=== PATIENT | male | born 1965 | race Hispanic/Latino ===

== ENCOUNTER 2021-06-09 18:37 | Emergency (ER) | payer MEDICARE ==
[2021-06-10] MEDS ORDERED: HYDROcodone/ACETAMINOPHEN 7.5-325MG TAB PO ONE (03:37)
--- NOTE | 2021-06-10 03:39 | Emergency Department Report ---
ED Back Pain/Injury HPI - General Chief Complaint: Back Pain/Injury Stated Complaint: BACK PAINS Source: patient Limitations: No Limitations - History of Present Illness Initial Comments: 55-year-old male with a history of congestive heart failure COPD heart attack hypertension bipolar staph infection and ADD. Patient reports in the past he had a staph infection in his back where he has hardware. Patient complains of nausea but no vomiting. Patient has not been Covid vaccinated. Patient denies any recent injury to his back. Patient states he has been relocated from [place]. Last saw his primary care doctor was in November 2020. MD Complaint: back pain -: This afternoon Similar Symptoms Previously: Yes Radiation: none Severity: severe Quality: burning Consistency: constant Improves With: none Worsens With: none Associated Symptoms: nausea/vomiting (No vomiting). denies: difficulty urinating - Related Data Previous Rx's Medication Instructions Recorded Last Taken Type Ibuprofen [Motrin 800 MG tab] 800 mg PO Q8HR PRN #30 tablet 06/10/21 Unknown Rx Allergies Allergy/AdvReac Type Severity Reaction Status Date / Time No Known Allergies Allergy Unverified 06/09/21 21:27 ED Review of Systems ROS: Stated complaint: BACK PAINS Other details as noted in HPI Comment: All other systems reviewed and negative ED Past Medical Hx - Past Medical History Previous Medical History?: Yes Hx Hypertension: Yes Hx Heart Attack/AMI: Yes Hx Congestive Heart Failure: Yes Hx Renal Disease: Yes (Kidney Failure) Hx COPD: Yes Additional medical history: Multiple Staph infections, High Cholesterol, "Blood Clots in his heart", Heavy Crack user but has been clean for 10 years, States he has an 80% blockage in his heart being managed by medication but not taking the medication, reports he has OD'd on ADD medication in the past - Surgical History Past Surgical History?: Yes Additional Surgical History: Back Surgeries x 3 - Medications Home Medications: Home Medications Medication Instructions Recorded Confirmed Last Taken Type Ibuprofen [Motrin 800 MG tab] 800 mg PO Q8HR PRN #30 tablet 06/10/21 Unknown Rx ED Physical Exam - General Limitations: No Limitations General appearance: alert, in no apparent distress - Head Head exam: Present: atraumatic, normocephalic - Eye Eye exam: Present: normal appearance - ENT ENT exam: Present: mucous membranes moist - Neck Neck exam: Present: normal inspection - Respiratory Respiratory exam: Present: normal lung sounds bilaterally. Absent: respiratory distress - Cardiovascular Cardiovascular Exam: Present: regular rate, normal rhythm. Absent: systolic murmur, diastolic murmur, rubs, gallop - GI/Abdominal GI/Abdominal exam: Present: soft, normal bowel sounds - Rectal Rectal exam: Present: deferred - Extremities Exam Extremities exam: Present: normal inspection - Back Exam Back exam: Present: full ROM, tenderness, paraspinal tenderness - Neurological Exam Neurological exam: Present: alert, oriented X3, normal gait - Psychiatric Psychiatric exam: Present: normal affect, normal mood - Skin Skin exam: Present: warm, dry, intact, normal color. Absent: rash ED Course Vital Signs 06/09/21 06/09/21 20:54 21:58 Temperature 98.1 F Pulse Rate 98 H 84 Respiratory 18 Rate Blood Pressure 180/130 172/116 O2 Sat by Pulse 94 95 Oximetry ED Medical Decision Making - Radiology Data Radiology results: report reviewed [facility] [address] [place] [address] XRay Report Signed Patient: SHELBY MATUTE MR#: [id number] : 1965 Acct:[id number] Age/Sex: 55 / M ADM Date: 06/09/21 Loc: ED Attending Dr: Ordering Physician: DRAGAN LEMUS Date of Service: 06/10/21 Procedure(s): XR spine lumbosacral 2-3V Accession Number(s): [id number] cc: DRAGAN LEMUS Fluoro Time In Minutes: LUMBAR SPINE 2 VIEWS INDICATION / CLINICAL INFORMATION: lower back pain h/o hardware. PT STATES SPINAL SX 2007 PAIN STIMULATOR 2008 COMPARISON: None available. FINDINGS: VERTEBRAE: No acute fracture. No significant malalignment. Posterior fusion and decompression at L4-5. DISC SPACES / FACET JOINTS:Interbody spacer at L5-S1. Other disc spaces are preserved. PARASPINAL SOFT TISSUES:No significant abnormality. ADDITIONAL FINDINGS: Spinal bone stimulating leads at L4. Signer Name: Joshua Hastings MD Signed: 06/10/2021 4:13 AM Workstation Name: [id number] Transcribed By: DT Dictated By: Jose Hastings MD Electronically Authenticated By: Jose Hastings MD Signed Date/Time: 06/10/21 0413 DD/ - Medical Decision Making 55-year-old male with a history of congestive heart failure COPD heart attack hypertension bipolar staph infection and ADD. Patient reports in the past he had a staph infection in his back where he has hardware. Patient complains of nausea but no vomiting. Patient has not been Covid vaccinated. Patient denies any recent injury to his back. Patient states he has been relocated from [place]. Last saw his primary care doctor was in November 2020. X-ray shows no acute abnormality does show that he has a spinal stimulator. Recommend to follow-up with a primary care provider this month ibuprofen and follow-up with pain orthopedic provider Critical care attestation.: If time is entered above; I have spent that time in minutes in the direct care of this critically ill patient, excluding procedure time. ED Disposition Clinical Impression: Chronic back pain Disposition: DC-01 TO HOME OR SELFCARE Is pt being admited?: No Does the pt Need Aspirin: No Condition: Stable Instructions: Chronic Back Pain, [id number] Additional Instructions: X-ray of your back shows no acute abnormalities. Please take pain medication and follow-up with your primary care provider. Prescriptions: Ibuprofen [Motrin 800 MG tab] 800 mg PO Q8HR PRN #30 tablet PRN Reason: Pain , Severe (7-10) Referrals: [facility] [Primary Care Provider] - 3-5 Days [facility] [Provider Group] - 3-5 Days [facility] [Provider Group] - 3-5 Days Forms: Work/School Release Form(ED)
--- NOTE | 2021-06-10 04:17 | XRay Report ---
LUMBAR SPINE 2 VIEWS INDICATION / CLINICAL INFORMATION: lower back pain h/o hardware. PT STATES SPINAL SX 2007 PAIN STIMUL ATOR 2009 COMPARISON: None available. FINDINGS: VERTEBRAE: No acute fracture. No significant malalignment. Posterior fusion and decompression at L4-5 . DISC SPACES / FACET JOINTS:Interbody spacer at L5-S1. Other disc spaces are preserved. PARASPINAL SOFT TISSUES:No significant abnormality. ADDITIONAL FINDINGS: Spinal bone stimulating leads at L4. Signer Name: Joshua Hastings MD Signed: 06/10/2021 4:13 AM Workstation Name: [id number]
[2021-06-10 05:50] VITALS: BP 158/103
== END 2021-06-10 05:44 | disposition home or self-care (01) ==
LOC: ED 18:37
DX: G89.29 Other chronic pain (principal); M54.9 Dorsalgia, unspecified; R11.0 Nausea; I11.0 Hypertensive heart disease with heart failure; I50.9 Heart failure, unspecified; I25.2 Old myocardial infarction; J44.9 Chronic obstructive pulmonary disease, unspecified; E78.5 Hyperlipidemia, unspecified
CPT/HCPCS: 72100; 99283

== ENCOUNTER 2021-08-02 22:40 | Observation (INO) | payer MEDICARE ==
--- NOTE | 2021-08-02 23:16 | Emergency Department Report ---
ED Altered Mental Status HPI - General Stated Complaint: AMS Time Seen by Provider: 08/02/21 23:11 - History of Present Illness Initial Comments: Patient was brought in by ambulance due to altered mental status. History is obtained from him and EMS. Patient states that he has felt off the last couple of days. He states that it was due to drugs. He admits to doing crack. He then later states that he did meth. He initially had denied drug use to EMS. Patient states that he just does not feel right. He is complained of upper back pain. He then complained of lower back pain and upper back pain. He admitted to having diarrhea for couple of days. He is unaware of any Covid symptoms. When asked that he had any symptoms that would be considered for pneumonia like cough and fever, he stated yes. He denies dysuria or frequency. He had no trauma. EMS states that the daughter called them because of altered mental status. She reported that he had been altered for the last couple of days. He had initially denied drug use to them. Later, in the ambulance, he admitted to crack use. He had not complained of any other symptoms to them. - Related Data Previous Rx's Medication Instructions Recorded Last Taken Type Ibuprofen [Motrin 800 MG tab] 800 mg PO Q8HR PRN #30 tablet 06/10/21 Unknown Rx Allergies Allergy/AdvReac Type Severity Reaction Status Date / Time No Known Allergies Allergy Verified 08/03/21 01:52 ED Review of Systems ROS: Stated complaint: AMS Other details as noted in HPI Comment: Unobtainable due to pts medical conditions (Patient is altered and does not provide consistent answers to the same question. Therefore review of systems is somewhat suspect.) ED Past Medical Hx - Past Medical History Hx Hypertension: Yes Hx Heart Attack/AMI: Yes Hx Congestive Heart Failure: Yes Hx Renal Disease: Yes (Kidney Failure) Hx COPD: Yes Additional medical history: Multiple Staph infections, High Cholesterol, "Blood Clots in his heart", Heavy Crack user but has been clean for 10 years, States he has an 80% blockage in his heart being managed by medication but not taking the medication, reports he has OD'd on ADD medication in the past - Surgical History Additional Surgical History: Back Surgeries x 3 - Family History Family history: other ( Denied by the patient) - Medications Home Medications: Home Medications Medication Instructions Recorded Confirmed Last Taken Type Ibuprofen [Motrin 800 MG tab] 800 mg PO Q8HR PRN #30 tablet 06/10/21 Unknown Rx ED Physical Exam - General Limitations: Altered Mental Status ( confusion with very slowed response time), Other ( pulse ox per EMS was noted and normal.) General appearance: alert, in no apparent distress, obese - Head Head exam: Present: atraumatic, normocephalic, normal inspection - Eye Eye exam: Present: normal appearance, EOMI. Absent: scleral icterus - ENT ENT exam: Present: mucous membranes dry, normal external ear exam - Neck Neck exam: Present: normal inspection. Absent: meningismus - Respiratory Respiratory exam: Present: normal lung sounds bilaterally. Absent: respiratory distress - Cardiovascular Cardiovascular Exam: Present: normal rhythm, tachycardia - GI/Abdominal GI/Abdominal exam: Present: soft. Absent: distended, tenderness - Extremities Exam Extremities exam: Present: normal capillary refill. Absent: pedal edema - Back Exam Back exam: Present: tenderness ( Diffuse paraspinous lumbar tenderness without step-off). Absent: CVA tenderness (R), CVA tenderness (L) - Neurological Exam Neurological exam: Present: alert, altered ( confused), CN II-XII intact, reflexes normal. Absent: motor sensory deficit - Psychiatric Psychiatric exam: Present: flat affect, other (slow to respond) - Skin Skin exam: Present: warm, dry ED Course Vital Signs 08/02/21 08/02/21 08/02/21 23:20 23:30 23:32 Temperature 98 F Pulse Rate 87 90 Respiratory 20 Rate Blood Pressure 165/98 Blood Pressure 165/98 [Left] O2 Sat by Pulse 95 95 Oximetry 08/02/21 08/03/21 08/03/21 23:46 00:00 00:16 Temperature Pulse Rate 97 H 84 88 Respiratory 15 20 17 Rate Blood Pressure 165/98 180/98 Blood Pressure [Left] O2 Sat by Pulse 96 98 96 Oximetry 08/03/21 08/03/21 08/03/21 00:30 01:00 02:00 Temperature Pulse Rate 96 H Respiratory 18 Rate Blood Pressure 180/98 156/97 Blood Pressure [Left] O2 Sat by Pulse 96 94 96 Oximetry 08/03/21 08/03/21 03:00 04:00 Temperature Pulse Rate 72 Respiratory 15 Rate Blood Pressure 156/97 156/97 Blood Pressure [Left] O2 Sat by Pulse 95 95 Oximetry - Reevaluation(s) Reevaluation #1: 08/02/21 23:16 EMS was met. IV and labs were ordered. CT was also ordered based on his confusion and lack of cogent answers. Reevaluation #2: 08/03/21 00:08 EKG was reviewed. Patient is still altered and confused. He told the nursing staff that he did not use drugs which contradicts previous history. Reevaluation #3: 08/03/21 01:52 Patient has refused his oral potassium. He believes that we are trying to poison him. He admits to a history of bipolar disease, which apparently was not previously known or diagnosed. Based on his paranoia, haloperidol has been ordered. IV potassium has been ordered. We will have psychiatric services see the patient in the morning. Reevaluation #4: 08/03/21 04:32 Geodon was administered as the patient was still agitated and pacing with Haldol. He is now more calm and sedate. - Lab Data Result diagrams: 08/02/21 23:38 08/02/21 23:38 Lab Results 08/02/21 08/02/21 08/02/21 Range/Units 23:38 23:38 23:38 WBC 9.8 (4.5-11.0) K/mm3 RBC 5.47 H (3.65-5.03) M/mm3 Hgb 15.9 H (11.8-15.2) gm/dl Hct 46.5 H (35.5-45.6) % MCV 85 (84-94) fl MCH 29 (28-32) pg MCHC 34 (32-34) % RDW 14.0 (13.2-15.2) % Plt Count 148 (140-440) K/mm3 Lymph % (Auto) 24.5 (13.4-35.0) % [place] % (Auto) 10.9 H (0.0-7.3) % Eos % (Auto) 0.6 (0.0-4.3) % Baso % (Auto) 0.4 (0.0-1.8) % Lymph # (Auto) 2.4 (1.2-5.4) K/mm3 [place] # (Auto) 1.1 H (0.0-0.8) K/mm3 Eos # (Auto) 0.1 (0.0-0.4) K/mm3 Baso # (Auto) 0.0 (0.0-0.1) K/mm3 Seg Neutrophils % 63.6 (40.0-70.0) % Seg Neutrophils # 6.2 (1.8-7.7) K/mm3 Sodium 141 (137-145) mmol/L Potassium 3.2 L (3.6-5.0) mmol/L Chloride 103.3 (98-107) mmol/L Carbon Dioxide 28 (22-30) mmol/L Anion Gap 13 mmol/L BUN 8 L (9-20) mg/dL Creatinine 0.9 (0.8-1.3) mg/dL Estimated GFR > 60 ml/min BUN/Creatinine Ratio 9 % Glucose 147 H (75-100) mg/dL Calcium 9.5 (8.4-10.2) mg/dL Total Bilirubin 1.60 H (0.1-1.2) mg/dL AST 23 (5-40) units/L ALT 30 (7-56) units/L Alkaline Phosphatase 120 (35-129) units/L Total Protein 7.1 (6.3-8.2) g/dL Albumin 4.3 (3.9-5) g/dL Albumin/Globulin Ratio 1.5 % TSH (0.270-4.200) mlU/mL Urine Opiates Screen Urine Methadone Screen Ur Barbiturates Screen Ur Phencyclidine Scrn Ur Amphetamines Screen U Benzodiazepines Scrn Urine Cocaine Screen U Marijuana (THC) Screen Drugs of Abuse Note Plasma/Serum Alcohol < 0.01 (0-0.07) % 08/03/21 08/03/21 Range/Units 00:31 01:51 WBC (4.5-11.0) K/mm3 RBC (3.65-5.03) M/mm3 Hgb (11.8-15.2) gm/dl Hct (35.5-45.6) % MCV (84-94) fl MCH (28-32) pg MCHC (32-34) % RDW (13.2-15.2) % Plt Count (140-440) K/mm3 Lymph % (Auto) (13.4-35.0) % [place] % (Auto) (0.0-7.3) % Eos % (Auto) (0.0-4.3) % Baso % (Auto) (0.0-1.8) % Lymph # (Auto) (1.2-5.4) K/mm3 [place] # (Auto) (0.0-0.8) K/mm3 Eos # (Auto) (0.0-0.4) K/mm3 Baso # (Auto) (0.0-0.1) K/mm3 Seg Neutrophils % (40.0-70.0) % Seg Neutrophils # (1.8-7.7) K/mm3 Sodium (137-145) mmol/L Potassium (3.6-5.0) mmol/L Chloride (98-107) mmol/L Carbon Dioxide (22-30) mmol/L Anion Gap mmol/L BUN (9-20) mg/dL Creatinine (0.8-1.3) mg/dL Estimated GFR ml/min BUN/Creatinine Ratio % Glucose (75-100) mg/dL Calcium (8.4-10.2) mg/dL Total Bilirubin (0.1-1.2) mg/dL AST (5-40) units/L ALT (7-56) units/L Alkaline Phosphatase (35-129) units/L Total Protein (6.3-8.2) g/dL Albumin (3.9-5) g/dL Albumin/Globulin Ratio % TSH 1.530 (0.270-4.200) mlU/mL Urine Opiates Screen Presumptive negative Urine Methadone Screen Presumptive negative Ur Barbiturates Screen Presumptive negative Ur Phencyclidine Scrn Presumptive negative Ur Amphetamines Screen Presumptive negative U Benzodiazepines Scrn Presumptive negative Urine Cocaine Screen Presumptive negative U Marijuana (THC) Screen Presumptive positive Drugs of Abuse Note Disclamer Plasma/Serum Alcohol (0-0.07) % - Medical Decision Making Patient present by ambulance with reports of altered mental status. At this time, he does appear to be altered. He seems to be agitated. He seems to be responding to extraneous stimuli and paranoid. He has been medically cleared. We will have psychiatric services see the patient. He is not actively suicidal. A 1013 has not been established as of yet. Due to the hypokalemia, potassium has been ordered. If he requires psychiatric admission, that would need to be addressed regardless. There is no obvious infectious pathology that would account for symptoms. He does not have any obvious metabolic derangement. There is no structural lesion on head CT.This could all be related to bipolar disorder. Psychiatric services will be involved to evaluate the patient. Critical Care Time: No Critical care attestation.: If time is entered above; I have spent that time in minutes in the direct care of this critically ill patient, excluding procedure time. ED Disposition Clinical Impression: Hypokalemia, Paranoia Altered mental status Qualifiers: Altered mental status type: disorientation Qualified Code(s): R41.0 - Disorientation, unspecified Disposition: 30 STILL A PATIENT Is pt being admited?: No Does the pt Need Aspirin: No Condition: Stable Referrals: PRIMARY CARE, [Primary Care Provider] - 3-5 Days
[2021-08-02 23:58] LABS: Basophils % (Auto) 0.4 % (0.0-1.8); Eosinophils # (Auto) 0.1 K/mm3 (0.0-0.4); Eosinophils % (Auto) 0.6 % (0.0-4.3); Hematocrit 46.5 % (35.5-45.6); Hemoglobin 15.9 gm/dl (11.8-15.2); Lymphocytes # (Auto) 2.4 K/mm3 (1.2-5.4); Lymphocytes % (Auto) 24.5 % (13.4-35.0); Mean Corpuscular HGB Conc 34 % (32-34); Mean Corpuscular Volume 85 fl (84-94); Monocytes # (Auto) 1.1 K/mm3 (0.0-0.8); Monocytes % (Auto) 10.9 % (0.0-7.3); Platelet Count 148 K/mm3 (140-440); Red Blood Count 5.47 M/mm3 (3.65-5.03)
[2021-08-03 00:11] LABS: Alanine Aminotransferase 30 units/L (7-56); Albumin 4.3 g/dL (3.9-5); BUN/Creatinine Ratio 9; Blood Urea Nitrogen 8 mg/dL (9-20); Calcium 9.5 mg/dL (8.4-10.2); Hemolysis Index 4
[2021-08-03 00:46] LABS: Amphetamine Screen,Urine PRESUMPTIVE NEGATIVE; Benzodiazepines Screen,Urine PRESUMPTIVE NEGATIVE; Cannabinoid Screen,Urine PRESUMPTIVE POSITIVE; Cocaine Screen,Urine PRESUMPTIVE NEGATIVE; Methadone Screen,Urine PRESUMPTIVE NEGATIVE; Opiate Screen,Urine PRESUMPTIVE NEGATIVE
--- NOTE | 2021-08-03 00:46 | Cat Scan Report ---
CT HEAD WITHOUT CONTRAST INDICATION: Altered Mental Status / Confusion TECHNIQUE: All CT scans at this location are performed using CT dose reduction for ALARA by means of automated exposure control. COMPARISON: None available. FINDINGS: BRAIN: No hemorrhage or mass effect are seen. No evidence of acute cortical infarction is noted. Mode rate white matter microvascular changes are seen. Ill-defined asymmetric hypodensity is noted in the right basal ganglia posteriorly which is not clearly old. Lacunar infarction in the head of the cauda te nucleus on the right appears old. ORBITS: Normal as visualized. SOFT TISSUES OF HEAD: Normal. CALVARIUM: Normal. VISUALIZED PARANASAL SINUSES AND MASTOID AIR CELLS: Clear. ADDITIONAL FINDINGS: None. IMPRESSION: Though there is no definite acute abnormality, the vague hypodensity in the right basal g anglia possibly could represent recent focal ischemia. No hemorrhage or mass effect are seen. Clinica l correlation is suggested. Signer Name: Reji Hines MD Signed: 08/03/2021 12:42 AM Workstation Name: [id number]
[2021-08-03] MEDS ORDERED: POTASSIUM CHLORIDE ER 20 MEQ TAB PO ONE (00:56)
[2021-08-03] MEDS ORDERED: HALOPERIDOL LACTATE 5 MG/1 ML INJ IV ONE (01:51)
[2021-08-03] MEDS ORDERED: ZIPRASIDONE MESYLATE 20 MG VIAL IM ONE (02:52)
[2021-08-03] MEDS: POTASSIUM CHLORIDE 10 MEQ 10 MEQ/100 ML BAG IV SCH ×3 (03:35→05:43)
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
--- NOTE | 2021-08-03 14:05 | Event Note ---
Date: 08/03/21 Patient was seen overnight by another ER provider. The patient was assessed by the psychiatry/mental health team who did not feel he needed further inpatient psychiatric treatment. However, the patient's Noncon CT of the head was read by the radiologist as showing a vague hypodensity of the right basal ganglia which could represent acute/subacute focal ischemia. Old lacunar infarct was seen. Given this finding in conjunction with the patient's presentation with confusion and abnormal cognition, I feel that the patient requires admission for further work-up with MRI to rule out stroke. At [address] Caban regarding the case and discussed the the findings seen on Noncon CT of the head which may show evidence of acute/subacute stroke and the need for further work-up with MRI. He accepts the patient and will assume care
--- NOTE | 2021-08-03 14:05 | History and Physical Report ---
History of Present Illness Chief complaint: I dont feel right History of present illness: 55 YO Male with Obesity Hypoventilation Syndrome, LDD, PSA, Bipolar Disorder, Cocaine Dependence, HTN, AR, Cardiomyopathy, Medication Noncompliance presents ED for evaluation. Patient has diminished cognition and provides minimal history. Patient history taken from EMS staff, ED staff, as well as the patient daughter who was made available by telephone for interview. As per daughter the patient "has not been acting right for the last 2 days". EMS was notified and upon arrival the patient was found to be in distress and subsequent transported to [facility] for further care and evaluation of the aforementioned symptoms. The p yifan was seen and evaluated in the emergency department. All lab and imaging studies reviewed. 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 Patient placed in observation status and admitted to medical floor and treated with supportive care. Patient denies fever, chills, chest pain, palpitation, productive cough, skin rash, recent ill contact, or known exposure to COVID-19. Patient knowledges ingestion of cocaine as well as methamphetamines. No prior admission for review. No medication listed at time of admission for reconciliation. Advanced care planning conducted in ED. Past History Past Medical History: acute AR, hypertension, other (See HPI) Past Surgical History: Other (Back surgery) Social history: single Family history: no significant family history, other (Reviewed) Medications and Allergies Allergies Allergy/AdvReac Type Severity Reaction Status Date / Time No Known Allergies Allergy Verified 08/03/21 01:52 Home Medications Medication Instructions Recorded Confirmed Last Taken Type Ibuprofen [Motrin 800 MG tab] 800 mg PO Q8HR PRN #30 tablet 06/10/21 Unknown Rx Quetiapine Fumarate [SEROquel] 50 mg PO BID #60 tab 08/03/21 Unknown Rx buPROPion [Wellbutrin] 100 mg PO DAILY #30 tab 08/03/21 Unknown Rx Review of Systems ROS unobtainable: due to mental status Exam - Constitutional Vitals: Temp Pulse Resp BP Pulse Ox 98 F 71 18 153/99 94 08/02/21 23:20 08/03/21 07:00 08/03/21 07:00 08/03/21 07:00 08/03/21 07:00 General appearance: Present: mild distress, obese - EENT Eyes: Present: PERRL ENT: hearing intact, clear oral mucosa - Neck Neck: Present: supple, normal ROM - Respiratory Respiratory effort: normal Respiratory: bilateral: CTA - Cardiovascular Heart Sounds: Present: S1 & S2. Absent: rub, click - Extremities Extremities: pulses symmetrical, No edema Peripheral Pulses: within normal limits - Abdominal General gastrointestinal: Present: soft, non-tender, non-distended, normal bowel sounds Male genitourinary: Present: normal - Integumentary Integumentary: Present: clear, warm, dry - Musculoskeletal Musculoskeletal: gait normal, strength equal bilaterally - Psychiatric Psychiatric: no appropriate mood/affect, no intact judgment & insight, no memory intact, no cooperative - Neurologic Neurologic: CNII-XII intact, moves all extremities Results - Labs CBC & Chem 7: 08/02/21 23:38 08/02/21 23:38 Labs: Abnormal lab results 08/02/21 08/02/21 Range/Units 23:38 23:38 RBC 5.47 H (3.65-5.03) M/mm3 Hgb 15.9 H (11.8-15.2) gm/dl Hct 46.5 H (35.5-45.6) % Trigg % (Auto) 10.9 H (0.0-7.3) % Trigg # (Auto) 1.1 H (0.0-0.8) K/mm3 Potassium 3.2 L (3.6-5.0) mmol/L BUN 8 L (9-20) mg/dL Glucose 147 H (75-100) mg/dL Total Bilirubin 1.60 H (0.1-1.2) mg/dL Assessment and Plan - Patient Problems (1) Cocaine delusional disorder Current Visit: Yes Status: Acute Plan to address problem: Supportive care, IV fluid resuscitation therapy, neuro check, seizure precaut ions, aspiration precautions, fall precautions, (2) Lumbar disc disease Current Visit: Yes Status: Acute Plan to address problem: Pain control, supportive care, (3) Bipolar disorder Current Visit: Yes Status: Acute Plan to address problem: Mental health team consulted. Outpatient follow-up. Continue medical management. (4) Obesity hypoventilation syndrome Current Visit: Yes Status: Acute Plan to address problem: Balanced diet, increase physical activity at discharge, outpatient pulmonary follow-up for sleep study. (5) DVT prophylaxis Current Visit: Yes Status: Acute Plan to address problem: SCD to bilateral lower extremities while in bed
[2021-08-03] MEDS ORDERED: oxyCODONE /ACETAMINOPHEN 5-325MG TAB PO PRN (16:12)
[2021-08-03] MEDS ORDERED: ALBUTEROL 2.5 MG/3 ML NEBU IH PRN (16:12)
[2021-08-03] MEDS ORDERED: HYDROmorphone 1 MG/1 ML INJ IV PRN (16:12)
[2021-08-03] MEDS ORDERED: ONDANSETRON 4 MG/2 ML INJ IV PRN (16:12)
[2021-08-03] MEDS ORDERED: ACETAMINOPHEN 325 MG TAB PO PRN (16:12)
[2021-08-03] MEDS ORDERED: SODIUM CHLORIDE 0.9% 1000 ML 1,000 ML IV SCH (16:15)
[2021-08-03] MEDS ORDERED: hydrALAZINE 20 MG/1 ML INJ IV PRN (20:03)
[2021-08-04] MEDS: cloNIDine 0.2 MG TAB PO SCH ×2 (00:12→09:38)
[2021-08-04 07:49] LABS: BUN/Creatinine Ratio 14; Blood Urea Nitrogen 11 mg/dL (9-20); Calcium 8.9 mg/dL (8.4-10.2); Hemolysis Index 7
[2021-08-04] MEDS ORDERED: POTASSIUM CHLORIDE ER 20 MEQ TAB PO NR (10:30)
--- NOTE | 2021-08-04 11:07 | Discharge Summary ---
Providers - Providers Date of Admission: 08/03/21 16:12 Attending physician: SONIA FAIRCHILD MD 08/03/21 01:53 Consult to Mental Health [CONS] Urgent Reason For Exam: paranoia, confusion 08/03/21 11:35 Physical Therapy Evaluation and Treat [CONS] Urgent Comment: Reason For Exam: Frequent falls, unsteady gait Mode of Transport?: Cane Weight bearing status?: Full wt bearing Assistive devices?: Yes If so list: Cane 08/03/21 11:37 Speech Therapy Evaluation and Treat [CONS] Urgent Reason For Exam: AMS, forgetfulness, danger to himself Primary care physician: PAINTER DRUM Hospitalization Reason for admission: ENCEPHALOPATHY Condition: Stable Hospital course: 55 YO Male with Obesity Hypoventilation Syndrome, LDD, PSA, Bipolar Disorder, Cocaine Dependence, HTN, ND, Cardiomyopathy, Medication Noncompliance presents ED for evaluation. Patient has diminished cognition and provides minimal history. Patient history taken from EMS staff, ED staff, as well as the patient daughter who was made available by telephone for interview. As per daughter the patient "has not been acting right for the last 2 days". EMS was notified and upon arrival the patient was found to be in distress and subsequent transported to [facility] for further care and evaluation of the aforementioned symptoms. The patient was seen and evaluated in the emergency department. All lab and imaging studies reviewed. 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 Patient placed in observation status and admitted to medical floor and treated with supportive care. Patient denies fever, chills, chest pain, palpitation, productive cough, skin rash, recent ill contact, or known exposure to COVID-19. Patient k nowledges ingestion of cocaine as well as methamphetamines. No prior admission for review. No medication listed at time of admission for reconciliation. Advanced care planning conducted in ED. (1) Cocaine delusional disorder Current Visit: Yes Status: Acute Plan to address problem: Supportive care, IV fluid resuscitation therapy, neuro check, seizure precautions, aspiration precautions, fall precautions, (2) Lumbar disc disease Current Visit: Yes Status: Acute Plan to address problem: Pain control, supportive care, (3) Bipolar disorder Current Visit: Yes Status: Acute Plan to address problem: Mental health team consulted. Outpatient follow-up. Continue medical management. (4) Obesity hypoventilation syndrome Current Visit: Yes Status: Acute Plan to address problem: Balanced diet, increase physical activity at discharge, outpatient pulmonary follow-up for sleep study. 08/04: Patient seen and examined, clinical stable this time, no further confusion, counselling provided to extensively, also discussed case with the family. Patient will need outpatient psych follow up. BP better controlled. 15 MINS Counselling for drug use. Disposition: 01 HOME / SELF CARE / HOMELESS Final Discharge Diagnosis (Prints w/discharge instructions): Acute Metabolic Encephalopathy Time spent for discharge: 35 mins Core Measure Documentation - Palliative Care Palliative Care/ Comfort Measures: Not Applicable - Core Measures Any of the following diagnoses?: none Exam - Physical Exam Narrative exam: VITAL SIGNS: Reviewed. GENERAL: The patient appears normally developed, Morbid obesity, Vital signs as documented. HEAD: No signs of head trauma. EYES: Pupils are equal. Extraocular motions intact. EARS: Hearing grossly intact. MOUTH: Oropharynx is normal. NECK: No adenopathy, no JVD. CHEST: Chest with clear breath sounds bilaterally. No wheezes, rales, or rhonchi. CARDIAC: Regular rate and rhythm. S1 and S2, without murmurs, gallops, or rubs. VASCULAR: No Edema. Peripheral pulses normal and equal in all extremities. ABDOMEN: Soft, non tender and non distended. No rebound or guarding, and no masses palpated. Bowel Sounds normal. MUSCULOSKELETAL: Good range of motion of all major joints. Extremities without clubbing, cyanosis or edema. NEUROLOGIC EXAM: Alert and oriented x 3 No focal sensory or strength de ficits. Speech normal. Follows commands. PSYCHIATRIC: Mood normal. SKIN: detail exam as documented in skin assessment - Constitutional Vitals: Temp Pulse Resp BP Pulse Ox 98.1 F 66 18 138/89 96 08/04/21 05:29 08/04/21 05:29 08/04/21 05:29 08/04/21 05:08/04/21 05:29 Plan Activity: advance as tolerated, fall precautions Diet: low fat Special Instructions: record daily weights, record daily BP diary Follow up with: YUKI DAVENPORT MD [Primary Care Provider] - 3-5 Days JUAN WAGNER MD [Staff Physician] - 7 Days Prescriptions: amLODIPine 10 mg PO DAILY #30 tab Quetiapine Fumarate [SEROquel] 50 mg PO BID #60 tab buPROPion [Wellbutrin] 100 mg PO DAILY #30 tab
[2021-08-04] MEDS ORDERED: MAGNESIUM SULFATE 1 GM in SODIUM CHLORIDE 0.9% 50 ML IV ONE (11:30)
[2021-08-04] MEDS: POTASSIUM CHLORIDE 10 MEQ 10 MEQ/100 ML BAG IV SCH ×2 (11:54→14:00)
[2021-08-04 12:42] VITALS: BP 145/86
[2021-08-04 12:54] LABS: Mucus,Urine 3+ /HPF
[2021-08-04 13:38] LABS: Bilirubin,Urine NEG (Negative); Blood,Urine NEG (Negative); Color,Urine Amber (Yellow)
--- NOTE | 2021-08-09 14:06 | Electrocardiograph Report ---
[facility] Test Date: 2021-08-02 Test Time: 23:53:37 Pat Name: SHELBY MATUTE Department: Room: A384 Gender: M [employer] Sales Associate: MISBAH Grey : 1965 Requested By: ARNOL TSANG Order Number: [id number] Reading MD: Mara Fontanez Measurements Intervals [place] Rate: 88 P: 28 VT: 198 QRS: 5 QRSD: 113 T: 3 QT: 402 QTc: 486 Interpretive Statements Sinus rhythm Consider anteroseptal infarct No previous ECG available for comparison Electronically Signed On 08-09-2021 14:06:21 EDT by Mara Fontanez
== END 2021-08-04 17:50 | disposition home or self-care (01) ==
LOC: ED 22:40 → 3A 08-03 16:12
PROVIDERS: ADMIT Internal Medicine; ATTEND Internal Medicine
DX: F22 Delusional disorders (principal); F31.9 Bipolar disorder, unspecified; F14.950 Cocaine use, unspecified with cocaine-induced psychotic disorder with delusions; M51.36 Other intervertebral disc degeneration, lumbar region; E66.2 Morbid (severe) obesity with alveolar hypoventilation; I10 Essential (primary) hypertension; I25.2 Old myocardial infarction; E87.6 Hypokalemia; R41.0 Disorientation, unspecified; R29.818 Other symptoms and signs involving the nervous system; F80.9 Developmental disorder of speech and language, unspecified; Z68.37 Body mass index [BMI] 37.0-37.9, adult; Z79.899 Other long term (current) drug therapy; Z98.890 Other specified postprocedural states
CPT/HCPCS: 36415; 70450; 80048; 80053; 80307; 81001; 83735; 84443; 85025; 92523; 92610; 93005; 96361; 96365; 96366; 96367; 96368; 96372; 96375; 97116; 97162; 99284; G0378; J0360; J1630; J3475; J3480; J3486; J7030; 80320; G0480